=== PATIENT | female | born 1965 | race Caucasian/White ===

== ENCOUNTER 2018-08-08 17:19 | Emergency (ER) | payer OTHER ==
--- NOTE | 2018-08-08 18:23 | RAD REPORT ---
EXAM DESCRIPTION: CT - Head Brain Wo Cont - 08/08/2018 6:07 pm CLINICAL HISTORY: Headache COMPARISON: None. TECHNIQUE: Computed axial tomography of the head was obtained. IV contrast was not requested. All CT scans are performed using dose optimization technique as appropriate and may include automated exposure control or mA/KV adjustment according to patient size. FINDINGS: An intracranial bleed is not seen . The ventricles are normal in caliber. No extra-axial fluid collection is noted. Fluid within the sinuses/ mastoids is not seen. IMPRESSION: No acute intracranial abnormality is seen. If patient's symptoms persist MRI of the bra in would be recommended.
--- NOTE | 2018-08-08 20:14 | ER ---
Nurse's Notes [facility] Name: Evelyn Small Age: 52 yrs Sex: Female : 1965 Arrival Date: 08/08/2018 Time: 17:21 Bed 8 Private MD: Max Rodney B Diagnosis: Migraine Presentation: 08/08 17:50 Presenting complaint: Patient states: Headache to back of head for 2 days, unrelieved aj with Imitrex and Motrin. Denies Nausea. Transition of care: patient was not received from another setting of care. Onset of symptoms was August 06, 2018. Risk Assessment: Do you want to hurt yourself or someone else? Patient reports no desire to harm self or others. Initial Sepsis Screen: Does the patient meet any 2 criteria? No. Patient's initial sepsis screen is negative. Does the patient have a suspected source of infection? No. Patient's initial sepsis screen is negative. Care prior to arrival: None. 17:50 Method Of Arrival: Ambulatory 17:50 Acuity: DARWIN 4 Triage Assessment: 17:52 Headache History: The patient has had previous headaches and this one is different than previous episodes. General: Appears in no apparent distress. uncomfortable, Behavior is calm, cooperative, appropriate for age. Pain: Complains of pain in occipital area and base of the skull Pain Pain began 2-3 days ago. Also complains of no other associated symptoms. Neuro: Level of Consciousness is awake, alert, obeys commands, Oriented to person, place, time, situation, Appropriate for age Vegetable Preparer are equal bilaterally Moves all extremities. Full function Gait is steady, Speech is normal, Facial symmetry appears normal, Reports headache. Respiratory: Airway is patent Respiratory effort is even, unlabored, Respiratory pattern is regular, symmetrical. Derm: Skin is intact, is healthy with good turgor, Skin is pink, warm \\T\\ dry. normal. 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 - Social history:: Smoking status: Patient/guardian denies using tobacco, Patient uses alcohol, only on a social basis. - Ebola Screening: : Patient negative for fever greater than or equal to 101.5 degrees Fahrenheit, and additional compatible Ebola Virus Disease symptoms Patient denies exposure to infectious person Patient denies travel to an Ebola-affected area in the 21 days before illness onset No symptoms or risks identified at this time. Screenin:08 Abuse screen: Denies threats or abuse. Denies injuries from another. ak1 21:10 Fall Risk None identified. ak1 21:10 Tuberculosis screening: No symptoms or risk factors identified. ak1 21:11 Nutritional screening: No deficits noted. ak1 Assessment: 20:49 Reassessment: Patient appears in no apparent distress at this time. Patient is alert, ak1 oriented x 3, equal unlabored respirations, skin warm/dry/pink. Patient states feeling better. Patient states symptoms have improved. Pain: Complains of pain in base of the skull. Neuro: Level of Consciousness is awake, alert, obeys commands, Oriented to person, place, time, situation, Appropriate for age Vegetable Preparer are equal bilaterally Moves all extremities. Gait is steady, Speech is normal, Facial symmetry appears normal, Pupils are PERRLA. Cardiovascular: No deficits noted. Respiratory: No deficits noted. Musculoskeletal: Reports pain in base of the skull after massaging the back of her neck the pain has decreased from 8 to 3 out of 10. 21:40 Reassessment: Patient and/or family updated on plan of care and expected duration. Pain ea level reassessed. Patient is alert, oriented x 3, equal unlabored respirations, skin warm/dry/pink. 21:43 Reassessment: Patient appears in no apparent distress at this time. pt stated she is ak1 unable to urinate at this time but the headache is "completely gone" Patient states feeling better. Patient states symptoms have improved. 22:12 Reassessment: Patient and/or family updated on plan of care and expected duration. Pain ea level reassessed. Patient is alert, oriented x 3, equal unlabored respirations, skin warm/dry/pink. Discharge instructions given to patient, verbalized the understanding of instruction. Patient states feeling better. Patient states symptoms have improved. Vital Signs: 17:52 BP 114 / 79; Pulse 84; Resp 20; Temp 98.6; Pulse Ox 97% on R/A; Weight 65.77 kg; Height aj 5 ft. 4 in. (162.56 cm); 21:11 BP 134 / 81; Pulse 64; Resp 16; Pulse Ox 97% on R/A; ak1 22:00 BP 128 / 70; Pulse 60; Resp 18; Pulse Ox 98% ; ea 17:52 Body Mass Index 24.89 (65.77 kg, 162.56 cm) aj ED Course: 17:21 Patient arrived in ED. rg4 17:21 Max Rodney MD is Private Physician. rg4 17:52 Triage completed. aj 17:52 Arm band placed on left wrist. Patient placed in waiting room, Patient notified of wait aj time. CT ordered. 17:[address] via wheelchair. vm2 18:08 CT Head Brain wo Cont In Process Unspecified. EDMS 20:14 Jordan Small MD is Attending Physician. aj 20:44 Attending Physician role handed off by Jordan Small MD fc 20:48 Jordyn Zabala, YAZMIN is Primary Nurse. ak1 20:48 Keyon Lowery PA is PHCP. jr8 20:48 Handy Arzate MD is Attending Physician. jr8 21:05 Inserted saline lock: 20 gauge in right antecubital area, using aseptic technique. ea 21:09 Patient has correct armband on for positive identification. Bed in low position. Call ak1 light in reach. Side rails up X 1. Adult w/ patient. Pulse ox on. NIBP on. 21:55 Max Rodney MD is Referral Physician. jr8 22:12 IV discontinued, intact, bleeding controlled, No redness/swelling at site. Pressure ea dressing applied. 22:14 No provider procedures requiring assistance completed. ea Administered Medications: 21:08 Drug: Reglan 10 mg Route: IVP; Site: right antecubital; ea 21:30 Follow up: Response: No adverse reaction; Pain is decreased ea 21:08 Drug: Benadryl 12.5 mg Route: IVP; Site: right antecubital; ea 21:30 Follow up: Response: No adverse reaction; Pain is decreased ea 21:08 Drug: TORadol 30 mg Route: IVP; Site: right antecubital; ea 21:30 Follow up: Response: No adverse reaction; Pain is decreased ea 21:08 Drug: NS 0.9% 1000 ml Route: IV; Rate: 1000 ml; Site: right antecubital; ea Outcome: 20:13 Eloped from waiting room, before seeing physician casie 20:14 Patient left the ED. aj 21:55 Discharge ordered by MD. ferris 22:14 Condition: improved ea 22:14 Discharge instructions given to patient, Instructed on discharge instructions, follow up and referral plans. Demonstrated understanding of instructions, follow-up care. 22:15 Patient left the ED. ea Signatures: Dispatcher [employer] EDMary Desai, RN RN Arcelia Simmons RN RN Keyon Duron PA PA jr8 Krenek, Amber, RN RN ak1 Garcia, Rubi rg4 McGuire, Victoria vm2 Antunez, Elena, RN RN ea
[2018-08-08] MEDS ORDERED: NA CHLORIDE 0.9% 1,000 ML ONE (21:06)
[2018-08-08] MEDS ORDERED: KETOROLAC 30 MG/ML INJ ONE (21:06)
[2018-08-08] MEDS ORDERED: METOCLOPRAMIDE 10 MG/2mL INJ ONE (21:06)
[2018-08-08] MEDS ORDERED: DIPHENHYDRAMINE 50 MG/ML VIAL ONE (21:06)
--- NOTE | 2018-08-08 21:56 | EDPHYS ---
Physician Documentation [facility] Name: Evelyn Small Age: 52 yrs Sex: Female : 1965 Arrival Date: 08/08/2018 Time: 17:21 Bed 8 Private MD: Max Rodney B ED Physician Handy Arzate HPI: 08/08 21:15 This 52 yrs old Female presents to ER via Ambulatory with complaints of jr8 Headache. 21:15 The patient complains of pain to the occipital area. The patient describes the headache jr8 as constant. Onset: The symptoms/episode began/occurred acutely, 2 day(s) ago. Associated signs and symptoms: Pertinent positives: nausea. Severity of symptoms: At its worst the pain was moderate, in the emergency department the pain is unchanged. Headache History: The patient has had previous headaches and this one is different than previous episodes. The symptoms are alleviated by nothing. the symptoms are aggravated by movement, noise, stress. The patient has not experienced similar symptoms in the past. The patient has not recently seen a physician. 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 - Social history:: Smoking status: Patient/guardian denies using tobacco, Patient uses alcohol, only on a social basis. - Ebola Screening: : Patient negative for fever greater than or equal to 101.5 degrees Fahrenheit, and additional compatible Ebola Virus Disease symptoms Patient denies exposure to infectious person Patient denies travel to an Ebola-affected area in the 21 days before illness onset No symptoms or risks identified at this time. ROS: 21:15 Eyes: Negative for injury, pain, redness, and discharge, ENT: Negative for injury, jr8 pain, and discharge, Neck: Negative for injury, pain, and swelling, Cardiovascular: Negative for chest pain, palpitations, and edema, Respiratory: Negative for shortness of breath, cough, wheezing, and pleuritic chest pain, Back: Negative for injury and pain, MS/Extremity: Negative for injury and deformity, Skin: Negative for injury, rash, and discoloration. 21:15 Abdomen/GI: Positive for nausea, Negative for abdominal pain, vomiting, diarrhea. 21:15 Neuro: Positive for headache, Negative for altered mental status, dizziness, gait disturbance, hearing loss, loss of consciousness, numbness, seizure activity, speech changes, syncope, near syncope, tingling, tinnitus, tremor, visual changes, weakness. Exam: 21:15 Head/Face: Normocephalic, atraumatic. Eyes: Pupils equal round and reactive to light, jr8 extra-ocular motions intact. Lids and lashes normal. Conjunctiva and sclera are non-icteric and not injected. Cornea within normal limits. Periorbital areas with no swelling, redness, or edema. ENT: Nares patent. No nasal discharge, no septal abnormalities noted. Tympanic membranes are normal and external auditory canals are clear. Oropharynx with no redness, swelling, or masses, exudates, or evidence of obstruction, uvula midline. Mucous membranes moist. Neck: Trachea midline, no thyromegaly or masses palpated, and no cervical lymphadenopathy. Supple, full range of motion without nuchal rigidity, or vertebral point tenderness. No Meningismus. Cardiovascular: Regular rate and rhythm with a normal S1 and S2. No gallops, murmurs, or rubs. Normal PMI, no JVD. No pulse deficits. Respiratory: Lungs have equal breath sounds bilaterally, clear to auscultation and percussion. No rales, rhonchi or wheezes noted. No increased work of breathing, no retractions or nasal flaring. Abdomen/GI: Soft, non-tender, with normal bowel sounds. No distension or tympany. No guarding or rebound. No evidence of tenderness throughout. Back: No spinal tenderness. No costovertebral tenderness. Full range of motion. Skin: Warm, dry with normal turgor. Normal color with no rashes, no lesions, and no evidence of cellulitis. MS/ Extremity: Pulses equal, no cyanosis. Neurovascular intact. Full, normal range of motion. Neuro: Awake and alert, GCS 15, oriented to person, place, time, and situation. Cranial nerves II-XII grossly intact. Motor strength 5/5 in all extremities. Sensory grossly intact. Cerebellar exam normal. Normal gait. Vital Signs: 17:52 BP 114 / 79; Pulse 84; Resp 20; Temp 98.6; Pulse Ox 97% on R/A; Weight 65.77 kg; Height aj 5 ft. 4 in. (162.56 cm); 21:11 BP 134 / 81; Pulse 64; Resp 16; Pulse Ox 97% on R/A; ak1 22:00 BP 128 / 70; Pulse 60; Resp 18; Pulse Ox 98% ; ea 17:52 Body Mass Index 24.89 (65.77 kg, 162.56 cm) MDM: 20:48 Patient medically screened. jr8 21:55 Data reviewed: vital signs, nurses notes, radiologic studies, CT scan. Data jr8 interpreted: Pulse oximetry: on room air is 97 %. Interpretation: normal. Counseling: I had a detailed discussion with the patient and/or guardian regarding: the historical points, exam findings, and any diagnostic results supporting the discharge/admit diagnosis, radiology results, the need for outpatient follow up, a family practitioner, to return to the emergency department if symptoms worsen or persist or if there are any questions or concerns that arise at home. Response to treatment: the patient's symptoms have resolved after treatment, patient is well hydrated. 08/08 17:55 Order name: CT Head Brain wo Cont; Complete Time: 19:14 08/08 20:55 Order name: IV; Complete Time: 21:09 jr Administered Medications: 21:08 Drug: Reglan 10 mg Route: IVP; Site: right antecubital; ea 21:30 Follow up: Response: No adverse reaction; Pain is decreased ea 21:08 Drug: Benadryl 12.5 mg Route: IVP; Site: right antecubital; ea 21:30 Follow up: Response: No adverse reaction; Pain is decreased ea 21:08 Drug: TORadol 30 mg Route: IVP; Site: right antecubital; ea 21:30 Follow up: Response: No adverse reaction; Pain is decreased ea 21:08 Drug: NS 0.9% 1000 ml Route: IV; Rate: 1000 ml; Site: right antecubital; ea Disposition: 08/09 04:09 Co-signature as Attending Physician, Handy Arzate MD. gs Disposition: 08/08/18 21:55 Discharged to Home. Impression: Migraine. - Condition is Stable. - Discharge Instructions: Migraine Headache. - Medication Reconciliation Form, Thank You Letter, Antibiotic Education, Prescription Opioid Use form. - Follow up: Max Rodney MD; When: 2 - 3 days; Reason: Recheck today's complaints, Continuance of care, Re-evaluation by your physician. - Problem is new. - Symptoms are resolved. Signatures: Dispatcher [employer] EDMary Desai RN RN Tameka Cisneros, PHOTO COLORER-C PHOTO COLORER-Csnw Keyon Lowery, NORA MELENDEZ jr8 Kim Rothman RN RN ea Starr, Gregory, MD MD gs Corrections: (The following items were deleted from the chart) 08/08 20:48 20:14 08/08/2018 20:14 Patient left the facility before being seen by provider. Reason ak1 stated they are leaving due to unknown. aj 22:06 17:41 Urine Dipstick-Ancillary ordered. snw ak1 22:15 21:55 08/08/2018 21:55 Discharged to Home. Impression: Migraine. Condition is Stable. ea Forms are Medication Reconciliation Form, Thank You Letter, Antibiotic Education, Prescription Opioid Use. Follow up: Max Rodney; When: 2 - 3 days; Reason: Recheck today's complaints, Continuance of care, Re-evaluation by your physician. Problem is new. Symptoms are resolved. jr8
== END 2018-08-08 22:15 | disposition home or self-care (01) ==
LOC: ER 17:19
DX: G43.909 Migraine, unspecified, not intractable, without status migrainosus (principal)
CPT/HCPCS: 70450; 96374; 96375; 99284; J2765; J7030